=== PATIENT | female | born 1995 | race Hispanic/Latino ===

== ENCOUNTER 2017-09-15 07:58 | Inpatient (IN) | payer BC ==
[2017-09-15 08:08] VITALS: BMI 32.5
[2017-09-15 09:08] LABS: BASO % 0.3 % (0.0-2.0); EOS # 0.2 K/uL (0.0-0.7); EOS % 1.7 % (0.0-4.0); HEMOGLOBIN 14.1 g/dL (12.0-16.0); LYMPH # 3.5 K/uL (1.0-4.3); LYMPH % 34.5 % (20.0-40.0); MEAN CELL VOLUME 87.1 fl (81.0-99.0); MEAN CORPUSCULAR HEMOGLOBIN 28.6 pg (27.0-31.0); MEAN CORPUSCULAR HGB CONC 32.8 g/dL (33.0-37.0); MEAN PLATELET VOLUME 7.6 fl (7.2-11.7); MONO # 0.9 K/uL (0.0-0.8); MONO % 8.6 % (0.0-10.0); NEUT # 5.6 K/uL (1.8-7.0); NEUT % 54.9 % (50.0-75.0); NRBC % 0.1 % (0.0-0.0); RBC 4.92 Mil/uL (3.80-5.20); RED CELL DISTRIBUTION WIDTH 14.1 % (11.5-14.5); WHITE BLOOD COUNT 10.1 K/uL (4.8-10.8)
[2017-09-15] MEDS ORDERED: Lactated Ringer's 1,000 ML IV ONE ×2 (09:30→14:50)
[2017-09-15] MEDS ORDERED: Albuterol HFA 90 mcg/actuation (8 g) INH PRN (13:08)
[2017-09-15] MEDS ORDERED: Bupivacaine 0.5% 50 ML IJ ONE ×2 (13:56)
[2017-09-15] MEDS ORDERED: DiphenhydrAMINE 50 mg/ml Inj IVP PRN (16:23)
[2017-09-15] MEDS ORDERED: oxyCODONE 10 mg Immediate Release Tab PO PRN (18:34)
[2017-09-15] MEDS: oxyCODONE 5 mg Immediate Release Tab PO PRN ×2 (18:45→23:21)
[2017-09-15] MEDS ORDERED: oxyCODONE 5 mg Immediate Release Tab PO ONE ×3 (19:09→20:02)
[2017-09-15] MEDS ORDERED: oxyCODONE 5 mg Immediate Release Tab PO STA (19:18)
[2017-09-15] MEDS: DiphenhydrAMINE 50 mg/ml Inj IVP SCH (22:07)
[2017-09-15] MEDS: Lactated Ringer's 1,000 ML IV SCH (22:07)
[2017-09-16] MEDS ORDERED: oxyCODONE 5 mg Immediate Release Tab PO STA (00:13)
[2017-09-16] MEDS: Clindamycin 600mg/50ml NS 600 MG/50 ML BAG IVPB SCH ×2 (00:40→08:33)
[2017-09-16] MEDS: Lactated Ringer's 1,000 ML IV SCH (02:45)
[2017-09-16] MEDS: DiphenhydrAMINE 50 mg/ml Inj IVP SCH ×2 (03:39→09:03)
[2017-09-16] MEDS: oxyCODONE 10 mg Immediate Release Tab PO PRN ×2 (03:40→08:50)
[2017-09-16] MEDS: Levothyroxine 75 MCG TAB PO SCH ×3 (06:23→07:44)
[2017-09-16 08:02] LABS: HEMOGLOBIN 12.5 g/dL (12.0-16.0); MEAN CELL VOLUME 86.5 fl (81.0-99.0); MEAN CORPUSCULAR HEMOGLOBIN 28.9 pg (27.0-31.0); MEAN CORPUSCULAR HGB CONC 33.4 g/dL (33.0-37.0); RBC 4.31 Mil/uL (3.80-5.20); RED CELL DISTRIBUTION WIDTH 14.2 % (11.5-14.5); WHITE BLOOD COUNT 8.5 K/uL (4.8-10.8)
[2017-09-16 08:06] LABS: BLOOD UREA NITROGEN 7 mg/dl (7-17); CALCIUM 8.6 mg/dL (8.4-10.2); GFR AFRICAN-AMERICAN > 60; GFR NON-AFRICAN AMERICAN > 60
--- NOTE | 2017-09-16 08:57 | OP ---
PROCEDURE DATE: 09/15/2017 PREOPERATIVE DIAGNOSES: Severe intractable dysmenorrhea secondary to adenomyosis, unicornuate hypoplastic right uterus and history of pelvic endometriosis. POSTOPERATIVE DIAGNOSES: Severe intractable dysmenorrhea secondary to adenomyosis, unicornuate hypoplastic right uterus and history of pelvic endometriosis. PROCEDURE PERFORMED: Robotic laparoscopy excision of endometriosis, right ureterolysis, supracervical hysterectomy of hypoplastic uterine horn and right salpingectomy and left salpingectomy. SURGEON: Nahun Gonzalez MD ORDER CALLER: Minor Callahan MD TYPE OF ANESTHESIA: General endotracheal. ESTIMATED BLOOD LOSS: Minimal. COMPLICATIONS: None. INDICATION FOR THE PROCEDURE: The patient is a 21-year-old female with a significant medical history for mast cell disease ,Ron-Danlos aswell as severe dysmenorrhea, and a history of endometriosis. The patient also had left renal agenesis. The patient was evaluated both medically and surgically. She had a prior surgery for endometriosis which showed minimal endometriosis, and she had no relief from the surgery. She tried multiple medical treatments, none of which helped. She also saw a specialist in her nast cell disease and was counseled with regards to the history obtained. The patient also had a history of Ron-Danlos disease which is associated with pelvic pain. Her pain was very characteristic which is primarily confined to her periods and extremely severe. For this reason, she was counseled with regard to the possible hysterectomy. The patient understood that at best the hysterectomy would resolve some of her menstrual cramping, but it may not address some of her additional pain problems. The patient also understood that she had a right hypoplastic uterus most likely too small to carry a to term. She was counseled extensively with regards to the risk and benefits of the procedure. She also understood that the surgery may or may not solver her problem. She also understood that after the surgery the pain may not improve or it may get worse due to her Ron-Danlos. She also was counseled to get a second opinion both from another surgeon and also by medicine. Prior to the surgery 3 months prior the patient was shown an extensive consent and she affirmed a desire to move forward with the surgery. A decision was made to proceed with a supra cervical hysterectomy as this would solve the mesntrual cramping symproms. My concern was that a more extensive dissection to remove the cervix could induce more tissue damage to the pelvis and exacerbate potential nerve pain. She was presented the same consent the day of the surgery and she signed it. She had discussed the idea of moving forward this operation with both her family and her who are both in agreement with the procedure. DESCRIPTION OF PROCEDURE: After adequate anesthesia was obtained, the patient was placed in a dorsal lithotomy position. Extensive padding was placed under the patient in all area prone to pressure. Throughout the procedure, the patient's hips were not hyperextended or hyperflexed and they were left in the same comfortable position. A time-out was taken according to hospital standard and the procedure was started. A speculum was placed into the vagina and the anterior lip of the cervix was grasped and a uterine manipulator was placed in the uterus. At this point, a Braun was placed in the bladder, attentions on the abdomen where an open laparoscopy performed according to standard technique by making an incision infraumbilically and then entering the fascia in a sharp fashion and the peritoneum in the blunt fashion. A cannula was placed. At this point under direct visualization, 3 additional ports were placed, left upper quadrant, left mid quadrant and right upper quadrant. The da E[employer] XI robot was then docked. Findings were as follows; the left ovary was outside of the pelvis on the pelvic brim with a very hypo-developed fallopian tube that basically consisted mostly of just fimbria. There was a very small hemiuterus horn about 3x2 cm in size almost and a normal tube which had a number of inflammatory lesions on it. The ovary appeared to be normal with the exception of a follicular cyst. There was an area of endometriosis which was identified in the posterior cervix which was excised and also in the right pelvic sidewall. Thhe rest of the pelvis was free of visible endometriosis. We identified the ureter, it was dissected out. The ureter was lateralized and dissected and the area was excised and sent to pathology. At this point, the first part of procedure consisted in performing a salpingectomy where the mesosalpinx was progressively coagulated and the fallopian tube was cut. The round ligament then was cut and the incision was extended anteriorly developing a bladder flap. At this point, peritoneum posteriorly was also progressively dissected and all this with extreme care not to injure the right ureter. At this point, the vessels were visualized and they were bipolar coagulated. Once we were in the level of the internal os the cervix, a incision was made circumferentially and the uterus was deattached. At this point, the cervical canal was bipolar coagulated extensively in order to prevent the risk of intermenstrual spotting. Utilizing a 2-0 self-locking suture, the cervix was then closed in order close the communication with it through the cervical canal. Once this was running, we checked for hemostasis, it appeared to be excellent. Attention was then on the left-hand side where the left fimbria and portion of left fallopian tube was also excised. This was discussed with the patient in order to reduce her lifetime risk of ovarian cancer. Another small lesion on potential endometriosis was noticed on the left pelvic sidewall which was also excised with great care to avoid any underlying structures. At this point, it was checked for hemostasis appeared to be excellent. The robot was undocked. The specimens were placed in an endobag. The umbilical incision was extended slightly and the specimen was extracted from the umbilical incision. At this point, the incision was closed with PDS for the fascia and 4-0 Monocryl for the skin. At the end of the procedure, all tapes and instruments counts were correct. The patient tolerated the procedure well and was taken to the recovery room in excellent condition. Nahun Gonzalez MD MTDD
[2017-09-16] MEDS ORDERED: oxyCODONE 10 mg Immediate Release Tab PO PRN ×2 (11:24→11:26)
[2017-09-16] MEDS ORDERED: oxyCODONE 20 mg ER Tab (oxyCONTIN) PO SCH (11:30)
[2017-09-16 11:44] VITALS: BP 126/82; PULSE 118; RESP 14; TEMP 99.9; O2SAT 96
--- NOTE | 2017-09-16 13:14 | CP.PCM.PN ---
<Jean Pope - Last Filed: 09/16/17 13:11> Subjective - Date & Time of Evaluation Date of Evaluation: 09/16/17 Time of Evaluation: 08:30 - Subjective Subjective: Patient was seen and examined at bedside comfortable. Her pain is moderately controlled and she is anxious this morning due to lack of sleep overnight. Tolerating liquids. No acute events overnight. Objective - Vital Signs/Intake and Output Vital Signs (last 24 hours): Temp Pulse Resp BP Pulse Ox 99.9 F H 118 H 14 126/82 96 09/16/17 11:43 09/16/17 11:43 09/16/17 11:43 09/16/17 11:43 09/16/17 11:43 Intake and Output: 09/16/17 09/16/17 06:59 18:59 Intake Total 100 Balance 100 - Medications Medications: Current Medications Albuterol (Ventolin Hfa 90 Mcg/Actuation (8 G)) 2 puff INH RQ6 PRN PRN Reason: Shortness of Breath Diphenhydramine HCl (Benadryl) 25 mg IVP Q6 [facility] Last Admin: 09/16/17 09:03 Dose: 25 mg Famotidine (Pepcid) 40 mg IVP DAILY [facility] Last Admin: 09/16/17 10:40 Dose: Not Given Famotidine (Pepcid) 20 mg PO BID [facility] Last Admin: 09/16/17 08:37 Dose: 20 mg Acetaminophen (Ofirmev) 100 mls @ 400 mls/hr IVPB Q6H [facility] PRN Reason: Protocol Stop: 09/16/17 13:16 Last Admin: 09/16/17 08:33 Dose: 400 mls/hr Lactated Ringer's (Lactated Ringer's) 1,000 mls @ 100 mls/hr IV .Q10H [facility] Last Admin: 09/16/17 02:45 Dose: Not Given Ketorolac Tromethamine (Toradol) 15 mg IVP Q6 PRN PRN Reason: Pain, moderate (4-7) Last Admin: 09/16/17 06:22 Dose: 15 mg Levothyroxine Sodium (Synthroid) 75 mcg PO DAILY@0630 [facility] Last Admin: 09/16/17 07:44 Dose: Not Given Montelukast Sodium (Singulair) 10 mg PO DAILY [facility] Last Admin: 09/16/17 08:50 Dose: 10 mg Oxycodone HCl (Oxycontin Extended Release Tab) 20 mg PO Q12 [facility] Last Admin: 09/16/17 11:36 Dose: 20 mg Oxycodone HCl (Oxycodone Immediate Release Tab) 10 mg PO Q4 PRN PRN Reason: Pain, moderate (4-7) Last Admin: 09/16/17 11:36 Dose: 10 mg Oxycodone HCl (Oxycodone Immediate Release Tab) 15 mg PO Q4 PRN PRN Reason: Pain, severe (8-10) - Labs Labs: 09/16/17 07:10 09/16/17 07:10 - GI/Abdominal Exam GI & Abdominal Exam: Soft, Tenderness, Normal Bowel Sounds. absent: Distended - Exam Additional comments: Dressings clean dry and intact. Mild tenderness to palpation about the portal sites. - Psychiatric Exam Psychiatric exam: Normal Affect - Skin Skin Exam: Normal Color Assessment and Plan (1) Dysmenorrhea Assessment & Plan: Patient is POD#1 s/p robotic lap excision of endometriosis, supracervical hysterectomy -pain control -OOB -clear to d/c to home -f/u in office within 2 weeks -november shower -case and plan discussed in agreement with Dr. Gonzalez Status: Acute <Nahun Gonzalez - Last Filed: 09/16/17 15:27> Objective - Vital Signs/Intake and Output Vital Signs (last 24 hours): Temp Pulse Resp BP Pulse Ox 99.9 F H 118 H 14 126/82 96 09/16/17 11:43 09/16/17 11:43 09/16/17 11:43 09/16/17 11:43 09/16/17 11:43 Intake and Output: 09/16/17 09/16/17 06:59 18:59 Intake Total 100 Balance 100 - Labs Labs: 09/16/17 07:10 09/16/17 07:10 Assessment and Plan - Assessment and Plan (Free Text) Assessment: recovering well post op deay one had to be admitted pos op due to her mast cell condition with risk of allergic crisis per dr kim reccomendation pain is better controlled and patient will be discharged with adequate medicaiton Plan: d/c home
== END 2017-09-16 14:38 | disposition home or self-care (01) | DRG 742 ==
LOC: H.OPSURG 07:58 → H.MEDSURG1 16:32
PROVIDERS: ADMIT Obstetrics & Gynecology Reproductive Endocrinology; ATTEND Obstetrics & Gynecology Reproductive Endocrinology
PROC: 0UT74ZZ Resection of Bilateral Fallopian Tubes, Percutaneous Endoscopic Approach (ICD-10-PCS; 2017-09-15)
PROC: 0TN64ZZ Release Right Ureter, Percutaneous Endoscopic Approach (ICD-10-PCS; 2017-09-15)
PROC: 8E0W4CZ Robotic Assisted Procedure of Trunk Region, Percutaneous Endoscopic Approach (ICD-10-PCS; 2017-09-15)
PROC: 0UT94ZL Resection of Uterus, Supracervical, Percutaneous Endoscopic Approach (ICD-10-PCS; principal; 2017-09-15 10:15)
DX: N80.0 Endometriosis of uterus (principal); Q79.6 Ehlers-Danlos syndromes; Q60.0 Renal agenesis, unilateral; Q51.811 Hypoplasia of uterus; N94.6 Dysmenorrhea, unspecified; Z88.6 Allergy status to analgesic agent; Z88.0 Allergy status to penicillin